=== PATIENT | male | born 1970 | race Caucasian/White ===

== ENCOUNTER 2023-11-10 13:21 | Emergency (ER) | payer OTHER ==
[~2023-11-10] VITALS: Ht 152.4 cm; Wt 69.0 kg
[~2023-11-10 13:21] MED LIST: METR-167 MT
[2023-11-10 13:39] VITALS: O2SAT 100
[2023-11-10 14:30] LABS: CHLORIDE 109 mEq/L (98-107); POTASSIUM 3.3 mEq/L (3.5-5.1); SODIUM 133 mEq/L (136-145)
[2023-11-10 14:31] LABS: CALCIUM 7.4 mg/dL (8.7-10.4); CARBON DIOXIDE 20 mEq/L (21-32)
[2023-11-10 14:36] LABS: CREATININE 0.8 mg/dL (0.6-1.3); GLUCOSE 113 mg/dL (70-105); UREA NITROGEN BLOOD 9 mg/dL (9-23)
[2023-11-10 14:38] LABS: ALANINE AMINOTRANSFERASE 40 IU/L (10-49); ALBUMIN 2.1 g/dL (3.2-4.8); ASPARTATE AMINOTRANSFERASE 103 IU/L (<34); BILIRUBIN DIRECT 0.5 mg/dL (<=3.0)
[2023-11-10 14:39] LABS: PROTEIN TOTAL 6.7 g/dL (6.0-8.3)
[2023-11-10 14:44] LABS: BASOPHILS % 1.1 % (0.0-2.0); EOSINOPHILS % 1.7 % (0.0-5.0); HEMATOCRIT. 28.5 % (42.0-52.0); HEMOGLOBIN. 9.8 g/dL (14.0-18.0); MEAN CORPUSCULAR HGB CONC 34.4 g/dL (31.0-37.0); MEAN CORPUSCULAR VOLUME 98.9 fL (80.0-94.0); MONOCYTES % 10.2 % (2.0-8.0); PLATELET 158 x1000/uL (130-400); RED BLOOD CELL COUNT 2.88 mill/uL (4.7-6.1); RED CELL DISTRIBUTION WIDTH 16.2 % (11.6-14.6); WHITE BLOOD COUNT 3.6 x1000/uL (4.5-11.0)
[2023-11-10 14:45] LABS: INR 1.3; PROTHROMBIN TIME 14.6 sec (9.6-11.0)
[2023-11-10 17:10] VITALS: BP 122/76; PULSE 80; RESP 20; TEMP 98.2
== END 2023-11-10 17:16 | disposition home or self-care (01) ==
LOC: ER 14:15
DX: R14.0 Abdominal distension (gaseous) (principal); Z90.49 Acquired absence of other specified parts of digestive tract; Z98.890 Other specified postprocedural states
CPT/HCPCS: 36415; 71045; 76705; 80048; 80076; 85025; 99284